=== PATIENT | female | born 1960 | race Caucasian/White ===

== ENCOUNTER → 2016-10-11 | Outpatient (CLI) | payer BC ==
[~2016-10-11] MED LIST: PANT40TA2 PO
--- OUTSIDE RECORDS SUMMARY | 2016-10-11 14:40 | XMS REPORT | Continuity of Care Document ---
Author Author [facility] Organization [facility] Address Unknown Phone Unavailable Care Team Providers Care Access Control Officer Name Role Phone ART NORRIS MD PCP Insurance Providers Payer Name Policy Number Subscriber Name Relationship [facility] [id number] Yuki Jimenez 17 Self / Same As Patient Advance Directives Directive Response Recorded Date/Time Advance Directives No 03/18/16 1:55pm Health Care Power of Visual Inspector No 03/18/16 1:55pm Organ Donor Yes 03/18/16 1:55pm Resuscitation Status Full Code 03/18/16 1:55pm Problems No problem information available. Medications No known medications. Social History No social history. Hospital Discharge Instructions No hospital discharge instructions. Plan of Care Discharge Date 03/18/16 2:43pm Prescriptions See Medication Section Functional Status No functional status results. Allergies, Adverse Reactions, Alerts No known allergies. Immunizations No immunization records. Vital Signs Acute Vital Signs Vital Response Date/Time Height (Feet) 5 feet 03/18/2016 1:55pm Height (Inches) 2.00 inches 03/18/2016 1:55pm Height (Calculated Centimeters) 157.400159 cm 03/18/2016 1:55pm Weight (Pounds) 237 pounds 03/18/2016 1:55pm Weight (Ounces) 0.0 oz 03/18/2016 1:55pm Weight (Calculated Grams) 549771.393 gm 03/18/2016 1:55pm Weight (Calculated Kilograms) 107.370702 kilograms 03/18/2016 1:55pm Calculated BMI 43.34 03/18/2016 1:55pm Results No known relevant diagnostic tests, laboratory data and/or discharge summary. Procedures No known history of procedures. Encounters Encounter Location Arrival/Admit Date Discharge/Depart Date Attending Provider Departed Clinic [facility] 03/18/16 1:00pm 03/18/16 2: 43pm TANO JAMES DO Registered Clinic [facility] 03/08/16 11:57am EBEN BRUCE DO
[2016-10-11 15:30] LABS: THYROID STIMULATING HORMONE 2.09 UIU/ML (0.35-4.94)
--- NOTE | 2016-10-11 16:50 | Diagnostic Imaging Report ---
Procedure: US thyroid. Technique: Multiple real-time grayscale images were obtained of the thyroid in various projections. Indication: Followup thyroid nodules. Comparison: 03/22/2016. Discussion: The thyroid gland remains normal in echotexture and size. The right thyroid measures 4.9 x 2.2 x 2.0 cm. The left thyroid measures 4.1 x 1.5 x 1.9 cm. Dominant right thyroid nodule measures 2.5 x 1.5 x 1.4 cm, stable. This nodule was reportedly biopsied and was benign. The 9 mm nodule within the left isthmus is also stable. No new nodule is identified. Impression: Stable sonographic appearance of the thyroid gland including a dominant right thyroid nodule and a small subcentimeter left isthmic nodule. Dictated by: Dictated on workstation # [id number]
== END ==
LOC: RAD 14:37
PROVIDERS: ATTEND Nurse Practitioner Family
DX: E04.2 Nontoxic multinodular goiter (principal)
CPT/HCPCS: 36415; 76536; 84439; 84443

== ENCOUNTER → 2017-01-31 | Outpatient (CLI) | payer BC ==
--- NOTE | 2017-01-31 14:48 | Diagnostic Imaging Report ---
PROCEDURE: MRI lumbar spine. TECHNIQUE: Multiplanar, multisequence MRI of the lumbar spine was performed without contrast. INDICATION: Right foot numbness. COMPARISON: None. FINDINGS: There are 5 lumbar type vertebral bodies presumed for the purposes of this report. There is mild retrolisthesis of L2 on L3. Alignment is otherwise unremarkable. Normal scattered type II Modic degenerative endplate changes. Bone marrow signal is otherwise normal. No abnormal signal in the conus which terminates at L1-L2. Normal configuration of the cauda equina without evidence of arachnoiditis. The visualized paravertebral soft tissues are unremarkable. L1-L2: There is a broad-based disc bulge with a central disc extrusion that contributes to lxxg-tr-iuklugxy spinal canal narrowing. No substantial lateral recess or neural foraminal narrowing. L2-L3: Broad-based disc bulge and co-existent left paracentral disc extrusion with superior migration combined with ligamentous hypertrophy results in moderate spinal canal narrowing with narrowing of the lateral recesses, left greater than right. Disc space height loss also contributes to mild left neural foraminal narrowing. L3-L4: Broad-based disc bulge and ligamentous hypertrophy result in only mild spinal canal narrowing. No substantial lateral recess narrowing. Disc space height loss and facet arthropathy contribute to mild bilateral neural foraminal narrowing. L4-L5: Broad-based disc bulge, facet arthropathy and ligamentous hypertrophy all contribute to moderate spinal canal narrowing. Disc space height loss also contributes to moderate bilateral neural foraminal narrowing. L5-S1: No substantial spinal canal or lateral recess narrowing. Disc space height loss and facet arthropathy contributes to mild bilateral neural foraminal narrowing. IMPRESSION: 1. Spondylotic changes result in moderate spinal canal narrowing at L2-L3 and L4-L5. There is mild to moderate spinal canal narrowing at L1-L2. 2. Scattered neural foraminal narrowing is greatest at L4-L5 bilaterally where it is moderate. Dictated by: Dictated on workstation # [id number]
== END ==
LOC: RAD 13:10
PROVIDERS: ATTEND Orthopaedic Surgery
DX: M47.816 Spondylosis without myelopathy or radiculopathy, lumbar region (principal); M48.06 Spinal stenosis, lumbar region
CPT/HCPCS: 72148

== ENCOUNTER → 2018-03-27 | Outpatient (CLI) | payer BC ==
--- NOTE | 2018-03-27 10:37 | Diagnostic Imaging Report ---
PROCEDURE: US Thyroid. TECHNIQUE: Multiple real-time grayscale images were obtained of the thyroid in various projections. INDICATION: Thyroid nodules, followup. Correlation is made with prior thyroid ultrasound from 10/11/2016. FINDINGS: The right lobe of the thyroid measures 5.2 x 2.4 x 2.0 cm and the left lobe measures 4.0 x 1.6 x 1.8 cm. There is an approximately 4 mm hypoechoic nodule in the left lobe near the isthmus. Right lobe again contains a dominant solid mass measuring 2.6 x 1.7 x 1.4 cm. This compares with 2.5 x 1.5 x 1.4 cm on prior. No new thyroid mass is detected. No associated microcalcifications are seen. IMPRESSION: Overall fairly stable appearance to the thyroid when compared with prior exam from 10/11/2016. No new thyroid mass is detected. Dictated by: Dictated on workstation # [id number]
[2018-03-27 10:38] LABS: FREE T4 (FREE THYROXINE) 1.02 NG/DL (0.70-1.48)
== END ==
LOC: RAD 09:04
PROVIDERS: ATTEND Otolaryngology Otolaryngology/Facial Plastic Surgery
DX: E04.2 Nontoxic multinodular goiter (principal)
CPT/HCPCS: 36415; 76536; 84439; 84443

== ENCOUNTER 2019-06-17 19:34 | Emergency (ER) | payer BC ==
[~2019-06-17] VITALS: Ht 157 cm; Wt 156.4 kg
[2019-06-17] MEDS ORDERED: ORPHENADRINE 60 MG/2 ML (NORFLEX) AMP IV ONE (20:15)
[2019-06-17] MEDS ORDERED: KETOROLAC 30 MG/ML VIAL IVP ONE (20:15)
[2019-06-17] MEDS ORDERED: fentaNYL INJECTION 100 MCG/2 ML AMP IVP ONE (20:15)
--- NOTE | 2019-06-17 20:22 | ED Back Pain ---
General Chief Complaint: Back Problems Stated Complaint: BACK PAIN Nursing Triage Note: Pt to room #6 via [facility] ems cart from home with c/o back spasm. 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 Pt reports she has been experiencing back spasms since 06/15/19 that have been increasing in severity since. Pt reports on this day she was stepping down a step at her home when severe lt lower back pain began. Pt reports discomfort radiates up to lt upper back. Pt reports increased urinary incontinence since back pain began stating, "I can feel it coming, I just can't get there fast enough." Pt denies being seen by PCP for back pain. A&OX4. Nursing Sepsis Screen: No Definite Risk Source of Information: Patient Exam Limitations: No Limitations History of Present Illness Date Seen by Provider: Jun 17, 2019 Time Seen by Provider: 20:20 Initial Comments To ER with reports of midline low back pain, this is been ongoing since of them are 13. She noticed it somewhat insidiously throughout the day while she was cleaning. 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 She cannot recall any particular incident that brought this pain about. It does seem to radiate to the left hip but not down either leg. No history of bowel or bladder incontinence or loss of sensation of her genitals. No personal history of cancer and no fevers chills or preceding trauma. Tonight, the pain seemed to be much worse when she stepped down out of her house onto her porch necessitating a phone call to 911. Location: Lumbar Spine, Paraspinous Muscles Timing/Duration: 1 Week Severity: Moderate Pain/Injury Location: Back Method of Injury: Unknown Modifying Factors: Worse With Movement Associated Symptoms: muscle spasms; No fever, No numbness in legs/feet, No tingling in legs/feet, No sensory/motor loss; lower back pain; No loss of bladder control, No loss of bowel control Allergies and Home Medications Allergies Coded Allergies: No Known Drug Allergies (Unverified , 03/18/16) Home Medications Pantoprazole Sodium 40 Mg Tablet.dr, 40 MG PO DAILY Prescribed by: TANO JAMES on 03/19/16 1008 Patient Home Medication List Home Medication List Reviewed: Yes Review of Systems Constitutional: see HPI EENTM: see HPI Respiratory: no symptoms reported Cardiovascular: no symptoms reported Genitourinary: no symptoms reported Musculoskeletal: see HPI, back pain Skin: no symptoms reported Psychiatric/Neurological: No Symptoms Reported Past Xrgvwtt-Lmjdjt-Nyxfow Hx Patient Social History Alcohol Use: Denies Use Recreational Drug Use: No Smoking Status: Never a Smoker 2nd Hand Smoke Exposure: No Recent Foreign Travel: No Contact w/Someone Who Travel: No Recent Infectious Disease Expo: No Immunizations Up To Date Date of Pneumonia Vaccine: Nov 19, 2010 Past Medical History Surgeries: Yes (left thumb calcium nodule removed, Lumpectomy, [place] teeth removal, ) Respiratory: No Cardiac: No Neurological: No Genitourinary: No Gastrointestinal: No (hemocult positive) Musculoskeletal: No Endocrine: No HEENT: No Lump removed from Lt breast. Non cancerous. Psychosocial: Yes Anxiety Integumentary: No Blood Disorders: No Physical Exam Vital Signs Vital Signs - First Documented 06/17/19 19:34 Temp 36.1 Pulse 81 Resp 18 B/P (MAP) 134/86 (102) Pulse Ox 98 O2 Delivery Room Air Capillary Refill : Less Than 3 Seconds Height, Weight, BMI Height: 5'2.00" Weight: 236lbs. 0.0oz. 107.802399mq; 63.00 BMI Method: General Appearance: No Apparent Distress, WD/WN, Obese, Other (alert very pleasant, keep keeps her hips and her knees flexed in a position of comfort) Neck: Full Range of Motion, Normal Inspection Respiratory: Normal Breath Sounds, No Accessory Muscle Use, No Respiratory Distress Gastrointestinal: Non Tender, Soft Neurologic/Psychiatric: Alert, Oriented x3 Skin: Normal Color, Warm/Dry Progress/Results/Core Measures Results/Orders Lab Results Laboratory Tests Test 06/17/19 21:00 Range/Units Urine Color YELLOW Urine Clarity CLEAR Urine pH 5 5-9 Urine Specific [place] 1.025 H 1.016-1.022 Urine Protein NEGATIVE NEGATIVE Urine Glucose (UA) NEGATIVE NEGATIVE Urine Ketones NEGATIVE NEGATIVE Urine Nitrite NEGATIVE NEGATIVE Urine Bilirubin NEGATIVE NEGATIVE Urine Urobilinogen NORMAL NORMAL MG/DL Urine Leukocyte Esterase NEGATIVE NEGATIVE Urine RBC (Auto) NEGATIVE NEGATIVE Urine RBC NONE /HPF Urine WBC NONE /HPF Urine Squamous Epithelial Cells 25-50 H /HPF Urine Crystals NONE /LPF Urine Bacteria FEW H /HPF Urine Casts NONE /LPF Urine Mucus SMALL H /LPF Urine Culture Indicated NO My Orders Orders - CRISTINO BURGESS APRN Ketorolac Injection (Toradol Injection) (06/17/19 20:15) Orphenadrine Injection (Norflex Injectio (06/17/19 20:15) Fentanyl Injection (Sublimaze Injection (06/17/19 20:15) Ed Iv/Invasive Line Start (06/17/19 20:15) Ct Lumbar Spine Wo (06/17/19 20:15) Ua Culture If Indicated (06/17/19 20:15) Rx-Oxycodone/Apap 5-325 Mg (Rx-Percocet (06/17/19 21:15) Medications Given in ED Current Medications Medications Dose Ordered Sig/Lianet Route Start Time Stop Time Status Last Admin Dose Admin Fentanyl Citrate 50 mcg ONCE ONCE IVP 06/17/19 20:15 06/17/19 20:17 DC 06/17/19 20:26 50 MCG Ketorolac Tromethamine 30 mg ONCE ONCE IVP 06/17/19 20:15 06/17/19 20:16 DC 06/17/19 20:26 30 MG Orphenadrine Citrate 60 mg ONCE ONCE IV 06/17/19 20:15 06/17/19 20:16 DC 06/17/19 20:26 60 MG Oxycodone/ Acetaminophen 1 ea Q4H PRN PO 06/17/19 21:15 06/17/19 21:13 1 EA Vital Signs/I&O 06/17/19 19:34 Temp 36.1 Pulse 81 Resp 18 B/P (MAP) 134/86 (102) Pulse Ox 98 O2 Delivery Room Air Blood Pressure Mean: 102 Departure Impression Primary Impression: Low back pain Qualified Codes: M54.5 - Low back pain Disposition: 01 HOME, SELF-CARE Condition: Stable Departure-Patient Inst. Decision time for Depature: 21:38 Referrals: NO,LOCAL PHYSICIAN (PCP/Family) Primary Care Physician Patient Instructions: Low Back Pain (DC) Add. Discharge Instructions: 1. Follow-up with your doctor provider in the next 1-2 weeks, neck stiffness an MRI if you have persistent pain. Steroids and pain medication as directed. All discharge instructions reviewed with patient and/or family. Voiced understanding. Scripts Prednisone (Prednisone) 20 Mg Tab 40 MG PO DAILY, #8 TAB 0 Refills Prov: CRISTINO BURGESS APRN 06/17/19 Hydrocodone/Acetaminophen ([place] 5-325 Tablet) 1 Each Tablet 1 TAB PO Q6H for Pain MDD 10 TABS for 7 Days, #14 TAB Prov: CRISTINO BURGESS APRN 06/17/19 CRISTINO BURGESS APRN Jun 17, 2019 20:22
--- NOTE | 2019-06-17 21:01 | Diagnostic Imaging Report ---
PROCEDURE: CT lumbar spine without contrast. TECHNIQUE: Multiple contiguous axial images were obtained through the lumbar spine without the use of intravenous contrast. Sagittal and coronal reformations were then performed. Auto Exposure Controls were utilized during the CT exam to meet ALARA standards for radiation dose reduction. INDICATION: Increasing back pain. COMPARISON: None. FINDINGS: Alignment of the lumbar column is normal. There is no subluxation or fracture. No osseous lesion is seen. SI joints are symmetric. There is no paraspinous mass or inflammatory process. Diffuse moderate to severe degenerative disc disease and facet joint arthropathy is seen. This is most pronounced at L3-4, L4-5 and L5-S1. Consider nonemergent MRI for additional evaluation. IMPRESSION: 1. No traumatic malalignment, fracture or osseous lesion. 2. No inflammatory process. 3. Multilevel degenerative changes throughout the disc spaces and facet joints. Recommend nonemergent MRI for further evaluation. Dictated by: Dictated on workstation # [id number]
[2019-06-17 21:09] LABS: BILIRUBIN,URINE NEGATIVE (NEGATIVE); CLARITY,URINE CLEAR; COLOR,URINE YELLOW; GLUCOSE, URINE (UA) NEGATIVE (NEGATIVE); KETONES,URINE NEGATIVE (NEGATIVE); LEUKOCYTE ESTERASE ,URINE NEGATIVE (NEGATIVE); NITRITE,URINE NEGATIVE (NEGATIVE); PH,URINE 5 (5-9); PROTEIN,URINE NEGATIVE (NEGATIVE); UROBILINOGEN,URINE NORMAL (NORMAL)
[2019-06-17] MEDS ORDERED: RX-OXYCODONE/APAP 5-325 MG #4 TAB PK PO PRN (21:15)
[2019-06-17 21:21] LABS: BACTERIA,URINE FEW /HPF; SQUAMOUS EPITHELIAL CELL,UR 25-50 /HPF
[2019-06-17] MEDS ORDERED: HYDR-4226 PO (21:40)
[2019-06-17] MEDS ORDERED: PRD20T PO (21:40)
[2019-06-17 21:47] VITALS: BP 115/54
== END 2019-06-17 21:48 | disposition home or self-care (01) ==
LOC: EDUNIT# 19:34 → ER 19:35
DX: M54.5 Low back pain (principal); F41.9 Anxiety disorder, unspecified
CPT/HCPCS: 72131; 81000

== ENCOUNTER → 2021-07-20 | Outpatient (CLI) | payer BC ==
[~2021-07-20] MED LIST changes: +HYDR-4226 PO; +PRD20T PO
--- NOTE | 2021-07-20 17:56 | Diagnostic Imaging Report ---
INDICATION: Swelling of soft tissues near right ankle. EXAMINATION: Ultrasound of the area question in the lateral soft tissues of the right ankle was performed. FINDINGS: There is a heterogeneous area just below the skin surface measuring 2.7 x 1.5 x 1.9 cm. This area contains predominantly solid components with some minimal cystic areas. The sonographic appearance is nonspecific. IMPRESSION: Nonspecific mixed echogenic lesion in the soft tissues lateral to the right ankle. The lesion is not a simple cyst. Further characterization with MRI may be helpful as clinically warranted. Dictated by: Dictated on workstation # [id number]
== END ==
LOC: RAD 15:15
PROVIDERS: ATTEND Surgery
DX: M79.9 Soft tissue disorder, unspecified (principal)
CPT/HCPCS: 76881

== ENCOUNTER → 2021-08-03 | Outpatient (CLI) | payer BC ==
[~2021-08-03] MED LIST changes: +GADOTERATE 0.5 MMOL/ML (CLARISCAN) 20 ML VIAL IV ONE
--- NOTE | 2021-08-03 10:22 | Diagnostic Imaging Report ---
EXAMINATION: Magnetic resonance imaging of the right ankle without and with intravenous contrast. DATE: August 03, 2021. COMPARISON: Ultrasound right ankle July 20, 2021. HISTORY: 61-year-old female, mass at the lateral aspect of the ankle. TECHNIQUE: Magnetic Resonance Imaging sequences were performed of the ankle without contrast. [< >] FINDINGS: TENDONS AND LIGAMENTS: The Achilles tendon is unremarkable. The posterior flexor tendons - tibialis posterior, flexor digitorum longus, flexor hallucis longus - are intact. The peroneal tendons - peroneus longus and peroneus brevis - are intact. The anterior extensor tendons - tibialis anterior, extensor hallucis longus and extensor digitorum longus tendons - are intact. The anterior and posterior syndesmotic ligaments are intact. The anterior talofibular, posterior talofibular, calcaneofibular and deltoid ligaments are intact. The plantar fascia is intact. JOINTS: There is moderate tibiotalar joint space loss. There are subchondral cystic changes and degenerative related signal changes adjacent to the tibiotalar joint. There is no large tibiotalar joint effusion. There is no posterior subtalar joint effusion. The subtalar and visualized joints of the mid-foot are intact. BONE: There is no acute fracture, bone contusion, or evidence of osteonecrosis The talar dome is intact. BURSAE AND SOFT TISSUES: There is a low signal mass mild contrast enhancement centered lateral to the peroneal tendons measuring 2.4 x 1.6 x 2.7 cm in size with low-level contrast enhancement. This is centered below the level of the distal fibular tip. IMPRESSION: 1. Low signal mass with low-level internal contrast enhancement lateral to the peroneal tendons centered below the level of the distal fibular tip measuring 2.4 x 1.6 x 2.7 cm in size, which is nonspecific. This is not clearly associated with the tendon sheath. Both benign and malignant soft tissue neoplasms are in the differential diagnosis. Biopsy and/or excision for definitive diagnosis is recommended. 2. Negative for tendon tear. No evidence of tenosynovitis. 3. Moderate tibiotalar osteoarthritis. 4. Intact ankle ligaments. 5. No acute fracture, bone contusion, or evidence of osteonecrosis. Dictated by: Dictated on workstation # [id number]
== END ==
LOC: RAD 08:12
PROVIDERS: ATTEND Surgery
DX: M19.071 Primary osteoarthritis, right ankle and foot (principal); M67.471 Ganglion, right ankle and foot
CPT/HCPCS: 73723

== ENCOUNTER → 2021-11-02 | Outpatient (CLI) | payer BC ==
[~2021-11-02] MED LIST changes: -GADOTERATE 0.5 MMOL/ML (CLARISCAN) 20 ML VIAL IV ONE
--- NOTE | 2021-11-02 14:51 | Diagnostic Imaging Report ---
PROCEDURE: Pelvic comp/transvaginal sonogram. TECHNIQUE: Complete transabdominal and transvaginal pelvic ultrasound was performed. In addition, limited pelvic Doppler was performed. INDICATION: Postmenopausal bleeding. Uterus is anteverted measuring 9.5 x 5.8 x 7.8 cm. No myometrial mass is identified. The endometrium is significantly thickened measuring up to 3.1 cm. No abnormal vascularity to the endometrium is seen. There are some cystic changes in the cervix, likely nabothian cysts. Ovaries were not visualized due to bowel. There is no adnexal mass or free fluid detected. IMPRESSION: 1. Markedly thickened endometrium of 3.1 cm. This is concerning for endometrial neoplasm and tissue sampling likely indicated. 2. Nonvisualized ovaries due to bowel gas. No adnexal mass or free fluid is detected. Dictated by: Dictated on workstation # [id number]
== END ==
LOC: RAD 13:15
PROVIDERS: ATTEND Obstetrics & Gynecology
DX: R93.89 Abnormal findings on diagnostic imaging of other specified body structures (principal); Z78.0 Asymptomatic menopausal state
CPT/HCPCS: 76830; 76856

== ENCOUNTER 2021-11-14 05:35 | Outpatient (CLI) | payer BC ==
[~2021-11-14] VITALS: Ht 157.5 cm; Wt 100.0 kg
[2021-11-14] MEDS ORDERED: [UNRECOGNIZED DRUG - OTHER] (09:43)
== END 2021-11-14 09:50 | disposition home or self-care (01) ==
LOC: PREOP 05:35
PROVIDERS: ATTEND Obstetrics & Gynecology
DX: Z01.818 Encounter for other preprocedural examination (principal)

== ENCOUNTER 2021-11-19 07:50 | Day surgery (SDC) | payer BC ==
[2021-11-19] VITALS (10 sets, daily range): BP systolic 115–143; BP diastolic 62–84
[~2021-11-19] VITALS: Ht 157.5 cm; Wt 110.9 kg
[~2021-11-19 07:50] MED LIST changes: +[UNRECOGNIZED DRUG - OTHER]
--- NOTE | 2021-11-19 08:16 | Progress Note-Pre Operative ---
Pre-Operative Progress Note H&P Reviewed The H&P was reviewed, patient examined and no changes noted. Date Seen by Provider: Nov 19, 2021 Time Seen by Provider: 08:15 Date H&P Reviewed: Nov 19, 2021 Time H&P Reviewed: 08:15 Pre-Operative Diagnosis: PMB, Thickened endometrium EBEN BRUCE DO Nov 19, 2021 08:16
--- NOTE | 2021-11-19 08:18 | Discharge Inst-Women's Service ---
Discharge Inst-Women's Serv Depart Medication/Instructions New, Converted or Re-Newed RX: Other (may take OTC MOTRIN/IBUPROPHEN NSAIDS NEEDED.) Problems Reviewed?: Yes Consults/Follow Up Additional Follow Up: Yes Orders/Referrals Dr. Bruce in 2 weeks. Activity Activity: Activity as Tolerated Driving Instructions: You May Drive NO SMOKING: NO SMOKING Nothing Inside Vagina: No Douching, No [place], No Tampons Diet Discharge Diet: No Restrictions Symptoms to Report to : Bleeding Excessive, Pain Increased, Fever Over 101 Degrees F, Vaginal Bleeding Increase, Questions/Concerns For Any Problems or Questions: Contact Your Physician EBEN BRUCE DO Nov 19, 2021 08:18
[2021-11-19] MEDS ORDERED: ONDANSETRON 4 MG/2 ML (SDV) Z0FRAN IVP PRN (08:30)
[2021-11-19] MEDS ORDERED: D5 LR IV SOLUTION 1,000 ML IV SCH (08:30)
[2021-11-19] MEDS ORDERED: KETOROLAC 30 MG/ML VIAL IVP ONE (08:30)
[2021-11-19 08:58] LABS: BASOPHILS % (AUTO) 1 % (0-10); EOSINOPHILS # (AUTO) 0.1 10^3/uL (0.0-0.3); EOSINOPHILS % (AUTO) 2 % (0-10); HEMATOCRIT 44 % (35-52); HEMOGLOBIN 14.8 g/dL (11.5-16.0); LYMPHOCYTES # (AUTO) 1.4 10^3/uL (1.0-4.0); LYMPHOCYTES % (AUTO) 21 % (12-44); MEAN CORPUSCULAR HEMOGLOBIN 31 pg (25-34); MEAN CORPUSCULAR HGB CONC 34 g/dL (32-36); MEAN CORPUSCULAR VOLUME 91 fL (80-99); MONOCYTES # (AUTO) 0.6 10^3/uL (0.0-1.0); MONOCYTES % (AUTO) 9 % (0-12); NEUTROPHILS # (AUTO) 4.4 10^3/uL (1.8-7.8); NEUTROPHILS % (AUTO) 67 % (42-75); PLATELET COUNT 243 10^3/uL (130-400); WHITE BLOOD COUNT 6.6 10^3/uL (4.3-11.0)
[2021-11-19] MEDS ORDERED: LACTATED RINGERS 1,000 ML IV PRN (09:00)
[2021-11-19] MEDS ORDERED: BUPIVACAINE 0.25% 30 ML (SENSORCAINE) VIAL ONE (09:57)
[2021-11-19] MEDS ORDERED: MIDAZOLAM 2 MG/2 ML (VERSED) VIAL ONE (10:52)
[2021-11-19] MEDS ORDERED: fentaNYL INJ 100 MCG/2 ML AMP ONE (10:52)
[2021-11-19] MEDS ORDERED: ONDANSETRON 4 MG/2 ML (SDV) Z0FRAN ONE (11:14)
[2021-11-19] MEDS ORDERED: SEVOFLURANE (ULTANE) 15 ML INHAL SOLN ONE (11:14)
[2021-11-19] MEDS ORDERED: proPOfol 200 MG/20 ML (DIPRIVAN) VIAL IV ONE (11:14)
[2021-11-19] MEDS ORDERED: LIDOCAINE PF 2% 5 ML (XYLOCAINE) VIAL ONE (11:14)
[2021-11-19] MEDS ORDERED: KETOROLAC 30 MG/ML VIAL ONE (11:48)
--- NOTE | 2021-11-19 12:57 | Anesthesia-General Post-Op ---
General Patient Condition Mental Status/LOC: Same as Preop Cardiovascular: Satisfactory Nausea/Vomiting: Absent Respiratory: Satisfactory Pain: Controlled Complications: Absent Post Op Complications Complications None Follow Up Care/Instructions Patient Instructions None needed. Anesthesia/Patient Condition Patient Condition Patient is doing well, no complaints, stable vital signs, no apparent adverse anesthesia problems. No complications reported per nursing. ERICA DUNCAN CRNA Nov 19, 2021 12:57
--- NOTE | 2021-11-19 19:27 | OPERATIVE REPORT ---
DATE OF SERVICE: PREOPERATIVE DIAGNOSES: 1. A 61-year-old female with postmenopausal bleeding. 2. Thickened endometrium on ultrasound. POSTOPERATIVE DIAGNOSES: 1. A 61-year-old female with postmenopausal bleeding. 2. Thickened endometrium on ultrasound. PROCEDURE: D and C. SURGEON: Eben Bruce DO ANESTHESIA: LMA general. ESTIMATED BLOOD LOSS: Minimal. URINE OUTPUT: 50 mL drained at the start of the procedure. FLUIDS: 600 mL lactated Ringer's solution. FINDINGS: Significant grade III to grade IV rectocele. Otherwise, grossly normal appearing vagina and cervix. SPECIMEN SENT: Endometrial curettings. INDICATIONS FOR PROCEDURE: This 61-year-old female is a patient who had sought care in my office for a second time due to postmenopausal bleeding. She had concerns due to family history of cancer and was asking for removal of her uterus in the office, I discussed with the patient need for endometrial sampling. I discussed doing this in the form of a D and C. Risks of procedure were discussed with the patient in detail. After all of her questions were answered, consent was obtained, the patient was taken to the operating room. OPERATIVE REPORT IN DETAIL: Once in the operating room, anesthesia was found to be adequate. She was placed in the dorsal lithotomy position, prepped and draped in normal sterile fashion. A timeout was performed. I then placed a weighted speculum into the patient's vagina. Right angle retractor was used to visualize the cervix. It was grasped 12 o'clock position using a long single tooth tenaculum. I then performed paracervical block at 3 and 9 o'clock positions on the cervix. Care was taken to aspirate for injecting 5 mL of 0.25% Marcaine injected into each site. I then gently sound the uterine cavity, depth was found to be approximately 7 cm. I then gently dilated the cervix using Hanks dilators to maximum dilatation of approximately 1 cm, at which point I performed a gentle curettage of all surfaces of the endometrial cavity. The tissue was collected and sent as endometrial curettings. There is a moderate amount of tissue was collected, after which there was no active bleeding noted from any of the dissection planes of the cervix itself. I then removed the single tooth tenaculum. There was no bleeding from the tenaculum site. I then removed the other instruments from the patient's vagina including the weighted speculum. There was no active bleeding noted at that point. The patient tolerated the procedure well and sent to recovery area in stable condition. Lap and sponge counts were correct at the end of the procedure. Instrument count was correct as well. Job ID: [id number] DocumentID: [id number] Dictated Date: 11/19/2021 11:57:55 [place] Editor Date: 11/19/2021 19:27:22 Dictated By: EBEN BRUCE DO
== END 2021-11-19 13:30 | disposition home or self-care (01) ==
LOC: SDC 07:50
PROVIDERS: ATTEND Obstetrics & Gynecology
DX: C54.1 Malignant neoplasm of endometrium (principal); R93.89 Abnormal findings on diagnostic imaging of other specified body structures; N93.9 Abnormal uterine and vaginal bleeding, unspecified; D25.9 Leiomyoma of uterus, unspecified; N95.0 Postmenopausal bleeding; E66.9 Obesity, unspecified; Z68.42 Body mass index [BMI] 45.0-49.9, adult; Z93.9 Artificial opening status, unspecified
CPT/HCPCS: 36415; 85025; 86850; 86900; 86901; 87081

== ENCOUNTER → 2022-07-12 | Outpatient (CLI) | payer BC ==
--- NOTE | 2022-07-12 14:19 | Diagnostic Imaging Report ---
Indication: Routine screening. Comparison is made with prior mammogram from 03/22/2016. Scattered fibroglandular densities are identified bilaterally. There are benign lymph nodes in the upper outer left breast. No spiculated mass or malignant-appearing microcalcifications are seen. Axillae are unremarkable. IMPRESSION: BI-RADS Category 2 No mammographic features suspicious for malignancy are identified. ACR BI-RADS Category 2: Benign findings. Result letter will be mailed to the patient. Note: At least 10% of breast cancer is not imaged by mammography. Dictated by: Dictated on workstation # [id number]
--- NOTE | 2022-07-12 18:28 | Diagnostic Imaging Report ---
PROCEDURE: US carotid duplex, bilateral. TECHNIQUE: Multiple real-time grayscale images were obtained over the carotid arteries in various projections, bilaterally. Additional spectral analysis and color Doppler duplex images were also obtained. INDICATION: Carotid bruit, vertigo, dizziness, headaches. COMPARISON: None. FINDINGS: RIGHT CAROTID: The right common carotid artery demonstrates mild intimal thickening with no significant stenosis. The internal and external carotid arteries appear widely patent. The vertebral artery is antegrade. Carotid upstrokes are brisk LEFT CAROTID: The left common carotid artery demonstrates minimal intimal thickening with calcified plaque at the bulb, but no significant stenosis appreciated. The ICA appears to be widely patent. The ECA appears patent. Carotid upstrokes are brisk. The vertebral arteries are antegrade. Parameters based on the consensus panel Kaba-Scale and Doppler ultrasound criteria published July 2003, Radiology, Volume 229. DOPPLER (peak systolic velocity M/S Right Left CCA 0.91 0.91 ICA Proximal 0.54 0.77 ICA Mid 0.65 0.96 ICA Distal 0.50 0.89 RATIO 0.72 1.06 ECA 0.77 1.08 VERT 0.59 0.68 IMPRESSION: 1. Mild atherosclerosis without hemodynamically significant stenosis based on flow velocity criteria. Dictated by: Dictated on workstation # [id number]
== END ==
LOC: RAD 09:54
PROVIDERS: ATTEND Nurse Practitioner Family
DX: Z12.31 Encounter for screening mammogram for malignant neoplasm of breast (principal); I65.23 Occlusion and stenosis of bilateral carotid arteries
CPT/HCPCS: 77063; 77067; 93880

== ENCOUNTER → 2022-09-06 | Outpatient (CLI) | payer BC ==
--- NOTE | 2022-09-06 10:22 | Diagnostic Imaging Report ---
PROCEDURE: US Thyroid. TECHNIQUE: Multiple real-time grayscale images were obtained of the thyroid in various projections. INDICATION: Thyroid nodule, followup. Correlation is made with prior ultrasound from 03/27/2018. Right lobe of thyroid measures 4.5 x 2.3 x 2.0 cm and left lobe measures 4.9 x 1.8 x 1.9 cm. Isthmus is 4 mm in thickness. The dominant nodule right lobe of thyroid measures 2.3 x 1.9 x 1.7 cm. This compares with 2.6 x 1.7 x 1.4 cm on prior. No new masses are detected. IMPRESSION: Overall fairly stable appears to be a dominant right lobe thyroid nodule when compared to examination from 03/27/2018. Dictated by: Dictated on workstation # [id number]
== END ==
LOC: RAD 08:00
PROVIDERS: ATTEND Otolaryngology Otolaryngology/Facial Plastic Surgery
DX: E04.1 Nontoxic single thyroid nodule (principal)
CPT/HCPCS: 76536